=== PATIENT | female | born 1960 | race Caucasian/White ===

== ENCOUNTER → 2016-11-19 | Day surgery (SDC) | payer OTHER ==
[~2016-11-19] VITALS: Ht 162.6 cm; Wt 77.1 kg
--- NOTE | 2016-11-19 12:57 | Operative Report ---
Operative/Inv Procedure Report Surgery Date: 11/19/16 Name of Procedure: bladder resection and fulgurations Pre-Operative Diagnosis: multiple small tiny bladder tumors and one larger one at left lateral wall lateral to UO. flat Post-Operative Diagnosis: same Estimated Blood Loss: scant Surgeon/Program Director/Air Personality: UMER MYERS MD Anesthesia: laryngeal mask airway Drains: 16fr palma Specimens: small bladder tumor Complications: none Condition: stable Operative Indication: multiple small tumors Operative/Procedure Note Note: This an operative dictation on patient Destinee John. She was found to have multiple small bladder tumors on office cystoscopy. She was booked for the bladder resection of tumors and fulguration. She was identified in the holding area and consented and all the risks benefits and alternatives of the surgery were given and all questions were answered. Patient was taken to the operating room placed on the operating table in supine position. She had been given IV migraine headache medicine which had resolved headache prior to the surgery. Timeout was performed. IV antibiotics were infused and LMA anesthesia was given. Patient was placed in the dorsolithotomy position and was prepped and draped in the standard sterile fashion. The bladder was globally inspected and there were multiple tumors on the lateral clay as well as the floor the bladder and the dome as well that were fulgurated. There was one larger flat lesion that was lateral to the right ureteral orifice and this was resected and sent off to pathology in formalin. The bladder was globally inspected multiple times to ensure that there were no lesions that were missed. Photos were taken and will be given to the patient. Patient tolerated the procedure well. A 16 [place] Palma catheter was placed and the patient was cleaned with Betadine solution. She tolerated the procedure well. Findings: multiple small bladder tumors throughout the bladder. one flat lesion on right lateral wall lateral to ureteral orifice Discharge Disposition: PACU
== END ==
LOC: STS 02:02
DX: D30.3 Benign neoplasm of bladder (principal); Z85.51 Personal history of malignant neoplasm of bladder; N32.89 Other specified disorders of bladder; F17.200 Nicotine dependence, unspecified, uncomplicated; G43.909 Migraine, unspecified, not intractable, without status migrainosus
CPT/HCPCS: 88305; J0131; J0690; J2250